=== PATIENT | female | born 1995 | race Two or more races ===

== ENCOUNTER 2016-08-19 05:23 | Emergency (ER) | payer OTHER ==
--- NOTE | 2016-08-19 19:22 | ER ---
ADMIT: 08/19/2016 RM/LOC: ER [facility] MR#: [id number] [address] [id number] RADHA ADHIKARI [address] [place] [address] Emergency Room Report SEX: F AGE: 20 : 1995 DATE: 08/19/2016 HISTORY OF PRESENT ILLNESS: The patient is a 20-year-old female with no past medical history, came to the ER with chief complaint of left flank pain and also left costovertebral angle pain and dysuria and frequency for the last 2 weeks. The patient states she used home remedy to treat UTI. The patient denies any fever or nausea or vomiting. Pain is unrelated to eating and is [id number] in severity and is aching. PHYSICAL EXAMINATION: VITAL SIGNS: The patient was afebrile in the ER with normal vitals. HEAD AND NECK: Normal exam. CHEST: Clear bilaterally. HEART: Normal heart sounds. ABDOMEN: Left mild costovertebral angle tenderness and left flank, and there were no anterior abdominal tenderness or rebound or guarding. The patient's test was negative, and the patient had white BC of 12.9 with hemoglobin of 13.6, and platelet of 291,000. Creatinine level was 0.6 and glucose was 88. Lipase was 124, and liver function test was normal. Urine was positive for 63 white BC and multiple clumps and 6 rbc. DIAGNOSIS: Urine tract infection. The patient was sent home with Keflex for 10 days p.o. and follow up in 2 weeks with the primary doctor for repeat urinary UA and further followups. Plan was discussed with the patient. She agreed upon it. The patient was discharged to home. Uriah Aragon MD/ crystal JOB #: [id number] CC: Uriah Aragon MD, Attending Physician JAVID Barrera, Family Physician
== END 2016-08-19 06:35 | disposition home or self-care (01) ==
LOC: ER 05:23
DX: N39.0 Urinary tract infection, site not specified (principal); Z90.49 Acquired absence of other specified parts of digestive tract